=== PATIENT | female | born 1960 | race Caucasian/White ===

== ENCOUNTER → 2021-06-25 | Outpatient (CLI) | payer BC ==
[2021-06-25 10:45] LABS: HEMATOCRIT 40.8 % (36.0-47.0); HEMOGLOBIN 13.9 g/dl (12.0-15.5); MEAN CORPUSCULAR HEMOGLOBIN 30.8 pg (27.0-33.0); MEAN CORPUSCULAR HGB CONC 34.1 g/dl (32.0-36.5); MEAN CORPUSCULAR VOLUME 90.5 fl (80.0-96.0); PLATELET COUNT, AUTOMATED 305 10^3/uL (150-450); RED BLOOD COUNT 4.51 10^6/uL (4.00-5.40); WHITE BLOOD COUNT 5.4 10^3/uL (4.0-10.0)
[2021-06-25 11:17] LABS: HEMOGLOBIN A1c 5.4 %
[2021-06-25 11:27] LABS: ALBUMIN 4.1 GM/DL (3.2-5.2); ALT/SGPT 31 U/L (12-78); BILIRUBIN,TOTAL 0.5 MG/DL (0.2-1.0); BLOOD UREA NITROGEN 19 MG/DL (7-18); CALCIUM LEVEL 10.2 MG/DL (8.8-10.2); CARBON DIOXIDE LEVEL 32 MEQ/L (21-32); CHLORIDE LEVEL 103 MEQ/L (98-107); CHOLESTEROL LEVEL 236 MG/DL (<200); CHOLESTEROL RISK RATIO 2.537 (<5); CREATININE FOR GFR 0.93 MG/DL (0.55-1.30); GLOMERULAR FILTRATION RATE > 60.0 (>45); GLUCOSE, FASTING 99 MG/DL (70-100); HDL CHOLESTEROL 93 MG/DL (>40); LDL CHOLESTEROL 125 MG/DL (<100); NON-HDL-C 143 MG/DL; POTASSIUM SERUM 4.4 MEQ/L (3.5-5.1); SODIUM LEVEL 138 MEQ/L (136-145); TOTAL 25(OH) VITAMIN D 40.3 NG/ML (30.0-100.0); TOTAL PROTEIN 7.4 GM/DL (6.4-8.2); TRIGLYCERIDES LEVEL 88 MG/DL (<150)
[2021-06-25 11:28] LABS: CREATININE, URINE 83.1 MG/DL; MALB URINE SIEMENS 8.6 MG/L; MAU/CREAT RATIO 10.3 MCG/MG (0.0-30.0)
[2021-06-25 12:40] LABS: VITAMIN B12 LEVEL 858 PG/ML (247-911)
== END ==
LOC: M PLALAB 08:51
PROVIDERS: ATTEND Internal Medicine Hematology
DX: I10 Essential (primary) hypertension (principal)

== ENCOUNTER → 2021-08-02 | Outpatient (CLI) | payer BC | LOC: M WHC 08:09 | PROVIDERS: ATTEND Advanced Practice Midwife | DX: Z12.31 Encounter for screening mammogram for malignant neoplasm of breast (principal); Z13.820 Encounter for screening for osteoporosis; M81.0 Age-related osteoporosis without current pathological fracture; M85.89 Other specified disorders of bone density and structure, multiple sites; Z78.0 Asymptomatic menopausal state; Z80.0 Family history of malignant neoplasm of digestive organs ==

== ENCOUNTER → 2022-01-13 | Outpatient (CLI) | payer BC ==
[~2022-01-13] MED LIST: HYDR-3490 PO; IBAN150T6 PO; PANT40TA29 PO; SERT50TA29 PO
== END ==
LOC: M LABSMTC 08:55
PROVIDERS: ATTEND Anesthesiology
DX: Z01.812 Encounter for preprocedural laboratory examination (principal); Z20.822 Contact with and (suspected) exposure to COVID-19

== ENCOUNTER 2022-01-16 06:17 | Day surgery (SDC) | payer BC ==
[~2022-01-16] VITALS: Ht 157.5 cm; Wt 61.2 kg
[2022-01-16] MEDS ORDERED: MIDAZOLAM INJ 2MG/2ML VIAL (J2250 PER 1MG) As Ordered ONE (07:07)
[2022-01-16] MEDS ORDERED: fentaNYL 100 MCG/2 ML INJECTION As Ordered ONE ×2 (07:08→08:05)
[2022-01-16] MEDS ORDERED: ONDANSETRON 4MG 2ML VIAL As Ordered ONE (07:08)
[2022-01-16] MEDS ORDERED: dexameTHASONE 4 MG/ML 1ML VIAL (J1100 PER 1MG) As Ordered ONE (07:08)
[2022-01-16] MEDS ORDERED: LIDOCAINE 2% 100MG/5ML SDV (FOR ANES.) As Ordered ONE (07:08)
[2022-01-16] MEDS ORDERED: propofoL 200 MG/20 ML VIAL As Ordered ONE ×2 (07:08→07:20)
[2022-01-16] MEDS ORDERED: BUPIVACAINE HCL 0.25% 30ML VIAL As Ordered ONE (07:12)
[2022-01-16] MEDS ORDERED: GLYCOPYRROLATE INJ 0.2 MG/ML 2 ML VIAL As Ordered ONE (07:21)
[2022-01-16] MEDS ORDERED: ACETAMINOPHEN 1000MG 100ML IV BTL (OFIRMEV) (J0131 PER 10MG) As Ordered ONE (07:49)
[2022-01-16] MEDS ORDERED: KETAMINE HCL 200 MG/20 ML VIAL As Ordered ONE (08:04)
[2022-01-16] MEDS ORDERED: POLYSPORIN TOPICAL OINTMENT 15GM As Ordered ONE (08:08)
[2022-01-16] MEDS ORDERED: KETOROLAC 60MG 2ML VIAL As Ordered ONE (08:10)
[2022-01-16 09:30] VITALS: BP 132/77
== END 2022-01-16 09:36 | disposition home or self-care (01) ==
LOC: M SDC 06:17
PROVIDERS: ATTEND Orthopaedic Surgery Hand Surgery
DX: G56.01 Carpal tunnel syndrome, right upper limb (principal); M65.341 Trigger finger, right ring finger; K21.9 Gastro-esophageal reflux disease without esophagitis; Z79.899 Other long term (current) drug therapy
CPT/HCPCS: 26055; 29848; J0131; J1100; J1885; J2250; J2405; J3010

== ENCOUNTER → 2022-04-04 | Outpatient (REF) | payer BC | LOC: M SFHCPLAZ 16:57 | PROVIDERS: ATTEND Internal Medicine Hematology | DX: J20.9 Acute bronchitis, unspecified (principal) ==

== ENCOUNTER → 2022-05-20 | Outpatient (CLI) | payer BC | LOC: M LABSMTC 09:37 | PROVIDERS: ATTEND Anesthesiology | DX: Z01.82 Encounter for allergy testing (principal) ==

== ENCOUNTER 2022-05-23 07:36 | Day surgery (SDC) | payer BC ==
[~2022-05-23] VITALS: Ht 157.5 cm; Wt 63.5 kg
[~2022-05-23 07:36] MED LIST changes: +NS 1,000 ML IV ONE
[2022-05-23] MEDS ORDERED: LIDOCAINE 2% 100MG/5ML SDV (FOR ANES.) As Ordered ONE (08:41)
[2022-05-23] MEDS ORDERED: propofoL 200 MG/20 ML VIAL As Ordered ONE (08:41)
[2022-05-23 09:22] VITALS: BP 125/83
== END 2022-05-23 09:32 | disposition home or self-care (01) ==
LOC: M OPP 07:36
PROVIDERS: ATTEND Internal Medicine Gastroenterology
DX: Z12.11 Encounter for screening for malignant neoplasm of colon (principal); Z80.0 Family history of malignant neoplasm of digestive organs; D12.5 Benign neoplasm of sigmoid colon; K64.8 Other hemorrhoids; Z79.899 Other long term (current) drug therapy; Z86.16 Personal history of COVID-19

== ENCOUNTER → 2022-08-05 | Outpatient (CLI) | payer BC ==
[~2022-08-05] MED LIST changes: -NS 1,000 ML IV ONE
== END ==
LOC: M WHC 08:19
PROVIDERS: ATTEND Obstetrics & Gynecology
DX: Z12.31 Encounter for screening mammogram for malignant neoplasm of breast (principal)

== ENCOUNTER → 2023-01-03 | Outpatient (CLI) | payer OTHER ==
[2023-01-03 14:20] LABS: HEMATOCRIT 39.2 % (36.0-47.0); HEMOGLOBIN 12.5 g/dl (12.0-15.5); MEAN CORPUSCULAR HEMOGLOBIN 27.9 pg (27.0-33.0); MEAN CORPUSCULAR HGB CONC 31.9 g/dl (32.0-36.5); MEAN CORPUSCULAR VOLUME 87.5 fl (80.0-96.0); PLATELET COUNT, AUTOMATED 395 10^3/uL (150-450); RED BLOOD COUNT 4.48 10^6/uL (4.00-5.40); WHITE BLOOD COUNT 6.2 10^3/uL (4.0-10.0)
== END ==
LOC: M PLALAB 09:53
PROVIDERS: ATTEND Internal Medicine Hematology
DX: Z00.00 Encounter for general adult medical examination without abnormal findings (principal)

== ENCOUNTER → 2023-03-28 | Outpatient (CLI) | payer OTHER | LOC: M RAD 08:08 | PROVIDERS: ATTEND Orthopaedic Surgery Hand Surgery | DX: S52.572A Other intraarticular fracture of lower end of left radius, initial encounter for closed fracture (principal); Y93.9 Activity, unspecified; Y92.9 Unspecified place or not applicable ==

== ENCOUNTER 2023-04-04 10:19 | Day surgery (SDC) | payer OTHER ==
[~2023-04-04] VITALS: Ht 157.5 cm; Wt 63.0 kg
[~2023-04-04 10:19] MED LIST changes: +CALC500C16 PO; +IBUP200C25 PO; +VITMTA PO
[2023-04-04] MEDS ORDERED: dexAMETHasone 10MG/1ML VIAL PRES.FREE PN ONE (11:00)
[2023-04-04] MEDS ORDERED: EPINEPHrine INJ 1 MG/ML 1ML AMP PN ONE (11:00)
[2023-04-04] MEDS ORDERED: MIDAZOLAM INJ 2MG/2ML VIAL IV PRN (11:00)
[2023-04-04] MEDS ORDERED: fentaNYL 100 MCG/2 ML INJECTION IV PRN (11:00)
[2023-04-04] MEDS ORDERED: ROPIvacaine 0.5% 30ML VIAL PN ONE (11:00)
[2023-04-04] MEDS ORDERED: fentaNYL 100 MCG/2 ML INJECTION As Ordered ONE (12:23)
[2023-04-04] MEDS ORDERED: MIDAZOLAM INJ 2MG/2ML VIAL As Ordered ONE (12:23)
[2023-04-04] MEDS ORDERED: ONDANSETRON 4MG 2ML VIAL As Ordered ONE (12:24)
[2023-04-04] MEDS ORDERED: LIDOCAINE 2% 100MG/5ML SDV (FOR ANES.) As Ordered ONE (12:24)
[2023-04-04] MEDS ORDERED: propofoL 200 MG/20 ML VIAL As Ordered ONE (12:24)
[2023-04-04] MEDS ORDERED: ceFAZolin 2 GM/D5W 50 ML IV BAG As Ordered ONE (13:54)
[2023-04-04] MEDS ORDERED: ACETAMINOPHEN 1000MG 100ML IV BAG As Ordered ONE (14:16)
[2023-04-04] MEDS ORDERED: HYDR-3713 PO (15:51)
[2023-04-04 16:35] VITALS: BP 158/76; TEMP 97.4; O2SAT 98
== END 2023-04-04 16:53 | disposition home or self-care (01) ==
LOC: M SDC 10:19
PROVIDERS: ATTEND Orthopaedic Surgery Hand Surgery
DX: S52.572A Other intraarticular fracture of lower end of left radius, initial encounter for closed fracture (principal); X58.XXXA Exposure to other specified factors, initial encounter; Y92.89 Other specified places as the place of occurrence of the external cause; Y93.89 Activity, other specified; Y99.9 Unspecified external cause status; I10 Essential (primary) hypertension; K21.9 Gastro-esophageal reflux disease without esophagitis; R06.83 Snoring; Z79.899 Other long term (current) drug therapy
CPT/HCPCS: 25609; 76000; C1713; J0131; J0665; J0690; J1100; J2250; J2405; J3010

== ENCOUNTER → 2023-04-14 | Outpatient (CLI) | payer OTHER ==
[~2023-04-14] MED LIST changes: +HYDR-3713 PO
== END ==
LOC: M SOG 07:59
PROVIDERS: ATTEND Physician Assistant
DX: S52.572A Other intraarticular fracture of lower end of left radius, initial encounter for closed fracture (principal)

== ENCOUNTER → 2023-05-15 | Outpatient (CLI) | payer OTHER | LOC: M SOG 07:53 | PROVIDERS: ATTEND Physician Assistant | DX: S52.572A Other intraarticular fracture of lower end of left radius, initial encounter for closed fracture (principal); Y93.9 Activity, unspecified; Y92.9 Unspecified place or not applicable ==

== ENCOUNTER → 2023-06-26 | Outpatient (CLI) | payer OTHER | LOC: M SOG 08:46 | PROVIDERS: ATTEND Physician Assistant | DX: S52.572D Other intraarticular fracture of lower end of left radius, subsequent encounter for closed fracture with routine healing (principal); Y93.9 Activity, unspecified; Y92.9 Unspecified place or not applicable ==

== ENCOUNTER 2023-12-25 07:21 | Day surgery (SDC) | payer BC ==
[~2023-12-25] VITALS: Ht 157.5 cm; Wt 63.5 kg
[~2023-12-25 07:21] MED LIST changes: +LOSA50TA28 PO; +MIDAZOLAM INJ 2MG/2ML VIAL As Ordered ONE; +MULT1TAB16 PO; +PHENYLEPHRINE 10% OPHTH SOL 5ML OS PRN; +fentaNYL 100 MCG/2 ML INJECTION As Ordered ONE
[2023-12-25] MEDS: OFLOXACIN 0.3 % (OCUFLOX) OPTH SOL 5ML OS ONE (08:23)
[2023-12-25] MEDS: LIDOCAINE 3.5 % 1ML OPHTH TOPICAL GEL OU ONE (08:23)
[2023-12-25] MEDS: TROPICAMIDE 1% OPHTH SOLN 15ML OS SCH (08:24)
[2023-12-25] MEDS: ATROPINE SULFATE 1% OPHTH SOLN 2ML BTL OS SCH (08:24)
[2023-12-25] MEDS: PHENYLEPHRINE 2.5% OPHTH SOL 2ML OS SCH (08:24)
[2023-12-25] MEDS: LIDOCAINE 1% SDV 5ML VIAL As Ordered ONE (09:15)
[2023-12-25] MEDS: BSS IRRIG/VANCO(10MG)/TOBRA(5MG)/EPINEPH(1:1000-0.5CC)500ML BAG-ORONLY As Ordered ONE (09:15)
[2023-12-25] MEDS ORDERED: GLYCOPYRROLATE INJ 0.2 MG/ML 2 ML VIAL As Ordered ONE (09:21)
[2023-12-25] MEDS: VISCOAT 40-30MG/ML 0.5ML SYRINGE As Ordered ONE (09:23)
[2023-12-25] MEDS: CEFUROXIME 1MG/0.1ML INTRACAMERAL INJ As Ordered ONE (09:23)
[2023-12-25 09:30] VITALS: BP 110/76; TEMP 97.2; O2SAT 99
== END 2023-12-25 09:46 | disposition home or self-care (01) ==
LOC: M SDC 07:21
PROVIDERS: ATTEND Ophthalmology
DX: H25.12 Age-related nuclear cataract, left eye (principal); R06.83 Snoring; Z79.899 Other long term (current) drug therapy
CPT/HCPCS: 66984; 92015; A4649; J0697; J1596; J2250; J3010; V2788

== ENCOUNTER 2024-01-08 07:06 | Day surgery (SDC) | payer BC ==
[~2024-01-08] VITALS: Ht 157.5 cm; Wt 62.6 kg
[~2024-01-08 07:06] MED LIST changes: -MIDAZOLAM INJ 2MG/2ML VIAL As Ordered ONE; +PHENYLEPHRINE 10% OPHTH SOL 5ML OD PRN; -PHENYLEPHRINE 10% OPHTH SOL 5ML OS PRN; -fentaNYL 100 MCG/2 ML INJECTION As Ordered ONE
[2024-01-08] MEDS: OFLOXACIN 0.3 % (OCUFLOX) OPTH SOL 5ML OD ONE (08:20)
[2024-01-08] MEDS: ATROPINE SULFATE 1% OPHTH SOLN 2ML BTL OD SCH (08:20)
[2024-01-08] MEDS: LIDOCAINE 3.5 % 1ML OPHTH TOPICAL GEL OU ONE (08:20)
[2024-01-08] MEDS: TROPICAMIDE 1% OPHTH SOLN 15ML OD SCH (08:21)
[2024-01-08] MEDS: PHENYLEPHRINE 2.5% OPHTH SOL 2ML OD SCH (08:21)
[2024-01-08] MEDS ORDERED: MIDAZOLAM INJ 2MG/2ML VIAL As Ordered ONE (09:26)
[2024-01-08] MEDS: LIDOCAINE 1% SDV 5ML VIAL As Ordered ONE (09:30)
[2024-01-08] MEDS: BSS IRRIG/VANCO(10MG)/TOBRA(5MG)/EPINEPH(1:1000-0.5CC)500ML BAG-ORONLY As Ordered ONE (09:30)
[2024-01-08] MEDS ORDERED: GLYCOPYRROLATE INJ 0.2 MG/ML 2 ML VIAL As Ordered ONE (09:42)
[2024-01-08] MEDS: CEFUROXIME 1MG/0.1ML INTRACAMERAL INJ As Ordered ONE (09:44)
[2024-01-08 09:53] VITALS: BP 135/70; TEMP 97.5; O2SAT 98
== END 2024-01-08 10:10 | disposition home or self-care (01) ==
LOC: M SDC 07:06
PROVIDERS: ATTEND Ophthalmology
DX: H25.11 Age-related nuclear cataract, right eye (principal); Z79.899 Other long term (current) drug therapy; Z98.42 Cataract extraction status, left eye
CPT/HCPCS: 66984; 92015; J0697; J1596; J2250; V2788

== ENCOUNTER → 2024-01-21 | Outpatient (CLI) | payer BC, OTHER ==
[~2024-01-21] MED LIST changes: +IBAN150T10 PO; -IBAN150T6 PO; -PHENYLEPHRINE 10% OPHTH SOL 5ML OD PRN
== END ==
LOC: M WHC 10:46
PROVIDERS: ATTEND Internal Medicine Hematology
DX: Z12.31 Encounter for screening mammogram for malignant neoplasm of breast (principal); R92.343 Mammographic extreme density, bilateral breasts

== ENCOUNTER → 2024-01-23 | Outpatient (CLI) | payer BC ==
[2024-01-23 14:54] LABS: BILIRUBIN,TOTAL 0.3 MG/DL (0.3-1.2); CALCIUM LEVEL 10.6 MG/DL (8.3-10.6); CHOLESTEROL RISK RATIO 2.83 (<5); CREATININE FOR GFR 1.03 MG/DL (0.55-1.30); GLOMERULAR FILTRATION RATE 57.4 (>45); HDL CHOLESTEROL 75.6 MG/DL (>40); LDL CHOLESTEROL 117.8 MG/DL (<100); NON-HDL-C 138.4 MG/DL; POTASSIUM SERUM 4.2 MMOL/L (3.5-5.1); TOTAL PROTEIN 7.7 G/DL (5.7-8.2)
[2024-01-23 14:55] LABS: CREATININE, URINE 103.6 MG/DL; MAU/CREAT RATIO 40.5 MCG/MG (0.0-30.0)
[2024-01-23 14:59] LABS: THYROID STIMULATING HORMONE 1.018 uIU/ML (0.55-4.78)
[2024-01-23 15:01] LABS: FREE T4 1.3 NG/DL (0.89-1.76)
== END ==
LOC: M PLALAB 10:32
DX: I10 Essential (primary) hypertension (principal)

== ENCOUNTER → 2024-02-23 | Outpatient (REF) | payer BC, MEDICARE | LOC: M SFHCPLAZ 12:33 | PROVIDERS: ATTEND Physician Assistant Medical | DX: J40 Bronchitis, not specified as acute or chronic (principal) ==

== ENCOUNTER → 2024-03-24 | Outpatient (CLI) | payer MEDICARE ==
[2024-03-24 10:49] LABS: BASO # 0.1 10^3/uL (0.0-0.2); BASO % 0.7 % (0.0-1.0); EOS # 0.2 10^3/uL (0.0-0.5); EOS % 2.5 % (0.0-3.0); HEMATOCRIT 41.8 % (36.0-47.0); HEMOGLOBIN 13.8 g/dl (12.0-15.5); LYMPH % 26.9 % (24.0-44.0); MEAN CORPUSCULAR HEMOGLOBIN 28.1 pg (27.0-33.0); MEAN CORPUSCULAR VOLUME 85.1 fl (80.0-96.0); MONO # 0.6 10^3/uL (0.0-0.8); MONO % 8.3 % (2.0-8.0); NEUTROPHILS # 4.6 10^3/uL (1.5-8.5); NEUTROPHILS % 61.3 % (36.0-66.0); PLATELET COUNT, AUTOMATED 279 10^3/uL (150-450); RED BLOOD COUNT 4.91 10^6/uL (4.00-5.40); WHITE BLOOD COUNT 7.5 10^3/uL (4.0-10.0)
[2024-03-24 11:12] LABS: ALBUMIN 4.1 G/DL (3.2-5.2); BILIRUBIN,DIRECT 0.2 MG/DL (<0.4); BILIRUBIN,TOTAL 0.6 MG/DL (0.3-1.2)
== END ==
LOC: M PLALAB 09:09
PROVIDERS: ATTEND Student in an Organized Health Care Education/Training Program
DX: R74.8 Abnormal levels of other serum enzymes (principal)

== ENCOUNTER 2024-04-30 07:43 | Day surgery (SDC) | payer MEDICARE ==
[~2024-04-30] VITALS: Ht 157.5 cm; Wt 61.4 kg
[~2024-04-30 07:43] MED LIST changes: +ALBU8.5H INH; +ATOR1TAB19 PO; +FEXO-63 PO; +LIDOCAINE 2% 100MG/5ML SDV (FOR ANES.) As Ordered ONE; +propofoL 200 MG/20 ML VIAL As Ordered ONE
[2024-04-30] MEDS ORDERED: fentaNYL 100 MCG/2 ML INJECTION As Ordered ONE (08:30)
[2024-04-30 09:35] VITALS: TEMP 97.1
[2024-04-30 09:53] VITALS: BP 134/78; O2SAT 100
== END 2024-04-30 10:00 | disposition home or self-care (01) ==
LOC: M OPP 07:43
PROVIDERS: ATTEND Surgery
DX: K44.9 Diaphragmatic hernia without obstruction or gangrene (principal); K31.89 Other diseases of stomach and duodenum; R12 Heartburn; Z79.899 Other long term (current) drug therapy; I10 Essential (primary) hypertension; E78.5 Hyperlipidemia, unspecified; K21.9 Gastro-esophageal reflux disease without esophagitis
CPT/HCPCS: 43239; 88305; J3010

== ENCOUNTER → 2024-05-28 | Outpatient (CLI) | payer MEDICARE ==
[~2024-05-28] MED LIST changes: -LIDOCAINE 2% 100MG/5ML SDV (FOR ANES.) As Ordered ONE; -propofoL 200 MG/20 ML VIAL As Ordered ONE
== END ==
LOC: M WHC 09:51
PROVIDERS: ATTEND Student in an Organized Health Care Education/Training Program
DX: E04.1 Nontoxic single thyroid nodule (principal)

== ENCOUNTER → 2024-07-30 | Outpatient (REF) | payer MEDICARE | LOC: M SFHCPLAZ 18:15 | PROVIDERS: ATTEND Family Medicine | DX: Z53.21 Procedure and treatment not carried out due to patient leaving prior to being seen by health care provider (principal); Z13.1 Encounter for screening for diabetes mellitus; Z13.220 Encounter for screening for lipoid disorders ==

== ENCOUNTER → 2024-08-03 | Outpatient (CLI) | payer MEDICARE ==
[2024-08-03 10:00] LABS: HEMATOCRIT 37.3 % (36.0-47.0); HEMOGLOBIN 11.5 g/dl (12.0-15.5); MEAN CORPUSCULAR HEMOGLOBIN 25.7 pg (27.0-33.0); MEAN CORPUSCULAR HGB CONC 30.8 g/dl (32.0-36.5); MEAN CORPUSCULAR VOLUME 83.3 fl (80.0-96.0); PLATELET COUNT, AUTOMATED 340 10^3/uL (150-450); RED BLOOD COUNT 4.48 10^6/uL (4.00-5.40); WHITE BLOOD COUNT 6.4 10^3/uL (4.0-10.0)
[2024-08-03 10:13] LABS: HEMOGLOBIN A1c 5.6 % (4.0-6.0)
[2024-08-03 10:23] LABS: ALBUMIN 4.4 G/DL (3.2-5.2); BILIRUBIN,TOTAL 0.6 MG/DL (0.3-1.2); CALCIUM LEVEL 10.4 MG/DL (8.3-10.6); CHOLESTEROL RISK RATIO 2.18 (<5); CREATININE FOR GFR 1.03 MG/DL (0.55-1.30); GLOMERULAR FILTRATION RATE 60.3 (>45); HDL CHOLESTEROL 84.6 MG/DL (>40); NON-HDL-C 100.4 MG/DL; TOTAL PROTEIN 7.9 G/DL (5.7-8.2)
== END ==
LOC: M PLALAB 08:57
DX: I10 Essential (primary) hypertension (principal); Z13.1 Encounter for screening for diabetes mellitus; E78.2 Mixed hyperlipidemia

== ENCOUNTER → 2024-10-04 | Outpatient (CLI) | payer MEDICARE | LOC: M PLAIMG 11:23 | PROVIDERS: ATTEND Physician Assistant Medical | DX: J06.9 Acute upper respiratory infection, unspecified (principal); R05.8 Other specified cough ==

== ENCOUNTER → 2024-10-13 | Outpatient (REF) | payer MEDICARE | LOC: M SFHCPLAZ 14:35 | PROVIDERS: ATTEND Family Medicine | DX: R05.8 Other specified cough (principal) ==

== ENCOUNTER → 2024-10-14 | Outpatient (REF) | payer MEDICARE | LOC: M SFHCPLAZ 11:44 | DX: R05.8 Other specified cough (principal) ==

== ENCOUNTER → 2024-10-21 | Outpatient (CLI) | payer MEDICARE | LOC: M PLAIMG 07:53 | PROVIDERS: ATTEND Physician Assistant Medical | DX: J06.0 Acute laryngopharyngitis (principal) ==

== ENCOUNTER → 2025-02-21 | Outpatient (REF) | payer MEDICARE | LOC: M SFHCPLAZ 12:35 | PROVIDERS: ATTEND Student in an Organized Health Care Education/Training Program | DX: Z53.9 Procedure and treatment not carried out, unspecified reason (principal) ==

== ENCOUNTER → 2025-02-21 | Outpatient (CLI) | payer MEDICARE ==
[2025-02-21 13:29] LABS: PLATELET COUNT, AUTOMATED 342 10^3/uL (150-450)
[2025-02-21 13:33] LABS: ALT/SGPT 31.0 U/L (7.0-40); AST/SGOT 36.0 U/L (<34); CALCIUM LEVEL 9.6 MG/DL (8.3-10.6); CARBON DIOXIDE LEVEL 28.0 MMOL/L (20-31); CHLORIDE LEVEL 104.0 MMOL/L (98-107); CHOLESTEROL LEVEL 157.0 MG/DL (<200); CHOLESTEROL RISK RATIO 1.88 (<5); CREATININE FOR GFR 0.84 MG/DL (0.55-1.30); GLOMERULAR FILTRATION RATE 76.6 (>45); LDL CHOLESTEROL 61.1 MG/DL (<100); NON-HDL-C 73.7 MG/DL; POTASSIUM SERUM 4.7 MMOL/L (3.5-5.1); SODIUM LEVEL 140.0 MMOL/L (136-145); TRIGLYCERIDES LEVEL 63.0 MG/DL (<150)
[2025-02-21 13:36] LABS: FREE T4 1.19 NG/DL (0.89-1.76)
[2025-02-21 13:46] LABS: ESTIMATED AVERAGE GLUCOSE 105.0 MG/DL (60-110)
== END ==
LOC: M PLALAB 10:57
PROVIDERS: ATTEND Student in an Organized Health Care Education/Training Program
DX: I10 Essential (primary) hypertension (principal); Z13.29 Encounter for screening for other suspected endocrine disorder; Z13.1 Encounter for screening for diabetes mellitus; E78.2 Mixed hyperlipidemia